=== PATIENT | female | born 1930 | race Caucasian/White ===

== ENCOUNTER 2017-11-10 18:11 | Inpatient (IN) | payer OTHER ==
[~2017-11-10] VITALS: Ht 149.9 cm; Wt 47.6 kg
[~2017-11-10 18:11] MED LIST: 8 HOUR650 MG PO; ALPRAZOLAM 0.50.5 MG PO; ASPIR 8181 MG PO; BRILINTA90 MG PO; COREG3.125 MG PO; DIOVAN40 MG PO; LIPITOR 20 MG T20 M1 PO
[2017-11-10 18:14] VITALS: BP 207/91
[2017-11-10 18:39] LABS: ABSOLUTE EOSINOPHILS 0.1 thou/uL (0.0-0.7); ABSOLUTE LYMPHOCYTES 1.4 thou/uL (0.8-5.3); ABSOLUTE MONOCYTES 0.7 thou/uL (0.0-1.2); ABSOLUTE NEUTROPHILS 3.7 thou/uL (1.6-8.1); BASOPHILS 0.8 %; EOSINOPHILS 2.1 %; HEMATOCRIT 36.3 % (37.0-47.0); HEMOGLOBIN 12.3 gm/dL (12.0-15.0); LYMPHOCYTES 23.4 %; MCH 32.8 pg (26.0-34.0); MCHC 33.9 g/dL (28.0-37.0); MCV 96.9 fL (80.0-100.0); MONOCYTES 12.2 %; MPV 8.3 fl. (7.2-11.1); NUCLEATED RBCS 0 /100WBC; PLATELET COUNT* 208 thou/uL (150-400); POLYS 61.5 %; RBC 3.74 mil/uL (4.20-5.00); RDW-CV 14.5 % (10.5-14.5)
[2017-11-10 18:42] LABS: CALCIUM 9.1 mg/dL (8.5-10.1); CREATININE 0.9 mg/dL (0.6-1.3); POTASSIUM 3.9 mmol/L (3.5-5.1)
[2017-11-10 18:46] LABS: APTT 24.5 Seconds (25.0-31.3)
[2017-11-10 18:47] LABS: ALBUMIN 3.5 g/dL (3.4-5.0); TOTAL BILIRUBIN 0.4 mg/dL (<0.1-1.0); TOTAL PROTEIN 7.2 g/dL (6.4-8.2)
[2017-11-10 20:27] LABS: URINE BILIRUBIN NEGATIVE (Negative); URINE BLOOD NEGATIVE (Negative); URINE CLARITY CLEAR; URINE COLOR YELLOW; URINE GLUCOSE-RANDOM NEGATIVE (Negative); URINE KETONES NEGATIVE (Negative); URINE LEUKOCYTES-REFLEX 1+ (Negative); URINE NITRITE-REFLEX NEGATIVE (Negative); URINE PROTEIN NEGATIVE (Negative); URINE UROBILINOGEN 0.2 E.U./dl (0.2-1.0)
[2017-11-10 20:44] LABS: CASTS None Seen /LPF (None Seen); SQUAMOUS 0-3 Few /LPF (0-3)
[2017-11-10 20:45] LABS: URINE RBC 0-2 Rare /HPF (0-2); URINE WBC-REFLEX 0-5 Rare /HPF (0-5)
[2017-11-10 20:52] LABS: BACTERIA-REFLEX 1-9 Few /HPF (None Seen); CRYSTALS None Seen /LPF (None Seen)
[2017-11-10 21:25] VITALS: BP 149/52
[2017-11-10 21:30] VITALS: BP 151/79
[2017-11-11 00:30] VITALS: BP 162/56
[2017-11-11 04:40] VITALS: BP 131/51
[2017-11-11 08:00] VITALS: BP 141/65
[2017-11-11] MEDS ORDERED: PLAVIX 75 MG TA75 M1 PO (11:42)
[2017-11-11] MEDS ORDERED: DIOVAN 80 MG TA80 M1 PO (11:43)
[2017-11-11 12:03] LABS: ALBUMIN 3.1 g/dL (3.4-5.0); CALCIUM 8.7 mg/dL (8.5-10.1); CREATININE 0.8 mg/dL (0.6-1.3); TOTAL BILIRUBIN 0.7 mg/dL (<0.1-1.0); TOTAL PROTEIN 6.4 g/dL (6.4-8.2)
[2017-11-11 12:06] VITALS: BP 160/71
--- NOTE | 2017-11-11 15:11 | 2DMMODE ---
[place] [address] 2 D/M-MODE ECHOCARDIOGRAM Name: GOLDIE FRITZ Room: [address] IN [facility]#: [id number] Admission: 11/10/17 Attend Phys: Chayito Eubanks, Discharge: Date of : [birth year] Date of Service: 11/11/17 1511 Report #: [id number] THIS REPORT FOR: //name// APPROVED REPORT Study performed: 11/11/2017 10:40:45 EXAM: Comprehensive 2D, Doppler, and color-flow Echocardiogram Patient Location: In-Patient Room #: [facility] Status: routine BSA: 1.43 HR: 65 bpm BP: 131/51 mmHg Rhythm: NSR Other Information Study Quality: Good Indications CVA/TIA Echo Enhancing Agent Indication: Rule out Shunt Agent(s) / Amount(s) Used: Agitated Saline 10 cc 2D Dimensions LVEF(%): 65.73 (>50%) IVSd: 12.03 (7-11mm) LVOT Diam: 19.46 (18-24mm) LVDd: 43.13 mm PWd: 11.14 (7-11mm) LVDs: 27.66 (25-40mm) Aortic Root: 29.49 mm Looney's LVEF: 65.73 % Volumes Left Atrial Volume (Systole) LA ESV Index: 47.70 mL/m2 Aortic Valve AoV Peak Ferny.: 1.36 m/s AO Peak Gr.: 7.36 mmHg LVOT Max P.39 mmHg AO Mean Gr.: 4.33 mmHg LVOT Mean P.33 mmHg LVOT Max V: 1.36 m/s AO V2 VTI: 29.11 cm LVOT Mean V: 0.83 m/[place] [address] 2 D/M-MODE ECHOCARDIOGRAM Name: GOLDIE FRITZ Room: [address] IN ..#: [id number] Admission: 11/10/17 Attend Phys: Chayito Eubanks, Discharge: Date of : [birth year] Date of Service: 11/11/17 1511 Report #: [id number] CAROL ANN (VTI): 2.80 cm2 LVOT V1 VTI: 27.38 cm Mitral Valve E/A Ratio: 0.57 MV Decel. Time: 302.50 ms MV E Max Ferny.: 0.69 m/s MV PHT: 87.73 ms MVA (PHT): 2.51 cm2 TDI E/Lateral E': 17.25 E/Medial E': 13.80 Medial E' Ferny.: 0.05 m/s Lateral E' Ferny.: 0.04 m/s Pulmonary Valve PV Peak Ferny.: 0.85 m/s PV Peak Gr.: 2.89 mmHg Tricuspid Valve TR Peak Gr.: 24.62 mmHg RVSP: 29.00 mmHg Left Ventricle The left ventricle is normal size. There is normal LV segmental wall motion. Moderate concentric left ventricular hypertrophy. Left ventricular systolic function is normal. The left ventricular ejection fraction is within the normal range. LVEF is 55-60%. Grade I - abnormal relaxation pattern. Right Ventricle The right ventricle is normal size. The right ventricular systolic function is normal. Pacemaker lead is present in the right ventricle. Atria Left atrium is moderate to severely dilated. 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 The right atrium size is normal. Aortic Valve The aortic valve is normal in structure. No aortic regurgitation is present. There is no aortic valvular stenosis. Mitral Valve There is mitral annular calcification. Mild mitral regurgitation. No evidence of mitral valve stenosis. Tricuspid Valve The tricuspid valve is normal in structure[place] [address] 2 D/M-MODE ECHOCARDIOGRAM Name: LAMGOLDIE Wesley Room: [address] IN M.R.#: [id number] Admission: 11/10/17 Attend Phys: Chayito Eubanks, Discharge: Date of : [birth year] Date of Service: 11/11/17 1511 Report #: [id number] regurgitation. The RVSP is ___29____ mmHg. Pulmonic Valve The pulmonary valve is normal in structure. There is no pulmonic valvular regurgitation. Great Vessels The aortic root is normal in size. IVC is normal in size and collapses with >50% inspiration Pericardium There is no pericardial effusion. <Conclusion> LVEF is 55-60%. Left ventricular systolic function is normal. There is normal LV segmental wall motion. Grade I - abnormal relaxation pattern. There is no aortic valvular stenosis. No aortic regurgitation is present. Mild mitral regurgitation. 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 <ELECTRONICALLY SIGNED> By: Dakota Rodriguez MD, FACC 11/11/171510 10 10 Dakota Rodriguez MD, FACC /INF
--- NOTE | 2017-11-11 15:20 | EKG ---
[place] [address] ELECTROCARDIOGRAM REPORT Name: GOLDIE FRITZ Room: [address] ADM IN .R.#: [id number] Admission: 11/10/17 Attend Phys: Chayito Eubanks MD Discharge: Date of : [birth year] Report #: [id number] THIS REPORT FOR: //name// [facility] ED Test Date: 2017-11-10 Test Time: 19:31:12 Pat Name: GOLDIE FRITZ Department: Room: [facility] Gender: F Shagger: LLUVIA : 1930 Requested By: Debbi Caputo Order Number: [id number] MD: Dakota Rodriguez Measurements Intervals Stollings Rate: 65 P: ME: 182 QRS: 49 QRSD: 100 T: 24 QT: 492 QTc: 512 Interpretive Statements Atrial-paced complexes Probable left ventricular hypertrophy Borderline T abnormalities, anterior leads Prolonged QT interval Baseline wander in lead(s) V3 Compared to ECG 09/16/2016 07:41:54 T-wave abnormality now present Possible ischemia no longer present Electronically Signed On 11-11-2017 15:20:48 WRITING TUTOR by Dakota Rodriguez [email or web address] <ELECTRONICALLY SIGNED> By: Dakota Rodriguez MD, FACC 11/11/17 1520 30 30 Dakota Rodriguez MD, FAC /EPI
[2017-11-11 17:16] VITALS: BP 164/80
[2017-11-11 20:00] VITALS: BP 162/62
[2017-11-12] VITALS (7 sets, daily range): BP systolic 147–171; BP diastolic 56–87
[2017-11-12 02:08] LABS: GLYCOHEMOGLOBIN (HGB A1C) 4.9 % (4.8-5.6)
[2017-11-12 05:25] LABS: ABSOLUTE EOSINOPHILS 0.2 thou/uL (0.0-0.7); ABSOLUTE LYMPHOCYTES 1.2 thou/uL (0.8-5.3); ABSOLUTE MONOCYTES 0.7 thou/uL (0.0-1.2); ABSOLUTE NEUTROPHILS 3.8 thou/uL (1.6-8.1); BASOPHILS 0.4 %; CALCIUM 8.5 mg/dL (8.5-10.1); CREATININE 0.8 mg/dL (0.6-1.3); EOSINOPHILS 4.1 %; HEMATOCRIT 33.9 % (37.0-47.0); HEMOGLOBIN 11.5 gm/dL (12.0-15.0); LYMPHOCYTES 19.6 %; MCH 32.5 pg (26.0-34.0); MCV 95.5 fL (80.0-100.0); MONOCYTES 11.9 %; MPV 8.9 fl. (7.2-11.1); NUCLEATED RBCS 0 /100WBC; PLATELET COUNT* 184 thou/uL (150-400); POTASSIUM 3.6 mmol/L (3.5-5.1); RBC 3.55 mil/uL (4.20-5.00); RDW-CV 14.5 % (10.5-14.5); WBC 5.9 thou/uL (4.0-11.0)
[2017-11-12 06:26] LABS: CHOLESTEROL 168 mg/dL (<200); HDL CHOLESTEROL 70 mg/dL (>40); LDL CHOLESTEROL 90 mg/dL (<100); SERUM ASSESSMENT Clear; TC:HDL 2.4 Ratio (Not establshd); TRIGLYCERIDE 41 mg/dL (<150); VLDL 8 mg/dL (<40)
[2017-11-12 07:09] LABS: ESR (SEDRATE) 10 mm/hr (0-30)
[2017-11-12 16:08] LABS: POC CA IONIZED 4.8 mg/dL (4.5-5.3); POC CREATININE 0.9 mg/dL (0.6-1.3); POC HEMOGLOBIN 12.6 g/dL (12.0-17.0); POC POTASSIUM 3.9 mmol/L (3.5-4.9)
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
== END 2017-11-12 18:30 | disposition home or self-care (01) | DRG 682 ==
LOC: M.ERS 18:11 → M.TBA-ER 20:06 → M.2W 20:06
PROVIDERS: Family Medicine; Internal Medicine; Personal Emergency Response Attendant; ADMIT Internal Medicine
PROC: 4A00X4Z Measurement of Central Nervous Electrical Activity, External Approach (ICD-10-PCS; principal; 2017-11-10)
DX: I12.9 Hypertensive chronic kidney disease with stage 1 through stage 4 chronic kidney disease, or unspecified chronic kidney disease (principal); G93.40 Encephalopathy, unspecified; R47.01 Aphasia; G45.9 Transient cerebral ischemic attack, unspecified; N18.2 Chronic kidney disease, stage 2 (mild); F43.9 Reaction to severe stress, unspecified; I25.10 Atherosclerotic heart disease of native coronary artery without angina pectoris; Z98.42 Cataract extraction status, left eye; Z98.41 Cataract extraction status, right eye; Z79.899 Other long term (current) drug therapy; Z79.82 Long term (current) use of aspirin; Z95.0 Presence of cardiac pacemaker; Z90.710 Acquired absence of both cervix and uterus; Z91.018 Allergy to other foods; Z98.61 Coronary angioplasty status